=== PATIENT | female | born 1985 | race Caucasian/White ===

== ENCOUNTER 2024-03-29 09:48 | Emergency (ER) | payer OTHER, MEDICAID, SELFPAY ==
--- NOTE | ~2024-03-29 | XR_ITS ---
XR lumbar spine min 4V DATE: 03/29/2024 10:42 INDICATION: Low back pain, radiating to right leg. History of scoliosis. TECHNIQUE: AP, lateral, bilateral oblique views, coned lateral lumbosacral view COMPARISON: None FINDINGS: Mild rotatory dextroscoliosis of the lumbar spine. No fracture or bone destruction or spondylolisthesis is evident. Lumbar and lumbosacral interspaces a ppear relatively well preserved. The sacroiliac joints are intact. IMPRESSION: Mild rotatory dextroscoliosis Reviewed, dictated and finalized at location A.
[2024-03-29 10:04] VITALS: BP 111/74; PULSE 75; RESP 16; TEMP 36.7; O2SAT 99
--- NOTE | 2024-03-29 10:12 | ED.BACK ---
HPI - Back Pain/Injury General Chief Complaint: Back Pain/Injury Stated Complaint: lower back pain Time Seen by Provider: 03/29/24 09:51 Source: patient Mode of arrival: ambulatory Limitations: no limitations History of Present Illness HPI Narrative: Patient is a 38 y/o female, with pmh of scoliosis, who presents to the ED with c/o lower back pain. Patient reports pain began last night, but became worse after eating breakfast this morning. Unsure if she slept wrong. Denies any distinct injury. She is currently in the residential program at [facility] and was given Tylenol this morning around 8:00 a.m. for a headache. States it has not improved her back pain. States pain is worse on the right side and intermittently radiates down her right leg. Reports intermittent paresthesias in right leg. Denies saddle anesthesia, numbness, weakness, bowel or bladder incontinence, abdominal pain, nausea, vomiting, fevers. Related Data Allergies Allergy/AdvReac Type Severity Reaction Status Date / Time coconut AdvReac Unknown Verified 03/29/24 10:08 tramadol AdvReac Unknown Verified 03/29/24 10:08 Review of Systems Review of Systems: CONSTITUTIONAL: Denies fever, chills, or sweats. GASTROINTESTINAL: Denies abdominal pain, nausea, vomiting, or diarrhea. GENITOURINARY: Denies incontinence, dysuria or hematuria. MUSCULOSKELETAL: See HPI. NEUROLOGIC: See HPI All systems reviewed & are unremarkable except as noted in HPI and below Exam Narrative: GENERAL: Well appearing, well-nourished, non-toxic, in no acute distress. HEAD: Normocephalic, atraumatic. RESPIRATORY: Airway patent, respirations nonlabored. Clear to auscultation bilaterally, no rales, rhonchi, wheezing. CARDIOVASCULAR: Regular rate and rhythm ABDOMINAL: Soft, no tenderness throughout abdomen, nondistended. Normoactive BS. MUSCULOSKELETAL: Moves all extremities. No gross deformities. Mild tenderness throughout right lumbosacral region, and over right SI region. No midline spinal tenderness. Sensation intact. SKIN: Warm, dry, normal color. NEURO: A&O X3. Speech clear. Cranial nerves II-XII grossly intact. Steady gait. No ataxic movements. PSYCHIATRIC: Appropriate mood and affect. Normal interaction. Course Vital Signs Vital signs: Vital Signs Temperature 98.1 F 03/29/24 10:04 Pulse Rate 75 03/29/24 10:04 Respiratory Rate 16 03/29/24 10:04 Blood Pressure 111/74 03/29/24 10:04 Pulse Oximetry 99 03/29/24 10:04 Oxygen Delivery Room Air 03/29/24 10:04 Temperature 98.1 F 03/29/24 10:04 Pulse Rate 82 03/29/24 10:58 Respiratory Rate 16 03/29/24 10:58 Blood Pressure 110/97 H 03/29/24 10:58 Pulse Oximetry 100 03/29/24 10:58 Oxygen Delivery Room Air 03/29/24 10:04 MDM - Back Pain/Injury MDM Narrative Medical decision making narrative: Patient presented to ED with 1 day history of right lower back pain. X-ray of lumbar spine showing scoliosis changes, no acute findings, vertebral spaces are well preserved. Patient?s pain is positional and localized to paraspinal muscles without signs of cord compression or cauda equina. Normal neurologic exams. No red flag symptoms. No fever noted and no significant risk factors for osteomyelitis or spinal epidural abscess. No symptoms or signs to suggest pain is referred from abdominal or source. Patient ambulates with a steady gait and is felt to be a reasonable candidate for continued outpatient management. She is feeling much better with supportive therapy. Resting comfortably on re-evaluation. Discussed discharge home, continue Tylenol/ibuprofen as needed for pain, will prescribe a few muscle relaxers for home use. Given return precautions. Patient discharged in stable condition. Remained neurologically intact at time of d/c. Medical Records Attestation: I reviewed the patient's medical records. Imaging Data Attestation: I personally reviewed and interpreted this imaging stud
[2024-03-29] MEDS: CYCLOBENZAPRINE HCL 5 MG TABLET PO (10:42)
[2024-03-29] MEDS: methylPREDNISolone SOD SUCC 125 MG VIAL IM (10:44)
[2024-03-29] MEDS: KETOROLAC (*BKC) 60 MG/2 ML VIAL IM (10:46)
[2024-03-29 10:58] VITALS: BP 110/97; PULSE 82; RESP 16; O2SAT 100
[2024-03-29 12:11] VITALS: BP 105/83; PULSE 70; RESP 14; O2SAT 100
== END 2024-03-29 12:12 | disposition home or self-care (01) ==
PROVIDERS: Emergency Provider Physician Assistant
DX: S39.012A Strain of muscle, fascia and tendon of lower back, initial encounter (principal); X58.XXXA Exposure to other specified factors, initial encounter
CPT/HCPCS: 72110; 96372; 99284; A9270; J1885; J2919

== ENCOUNTER 2024-06-15 18:49 | Emergency (ER) | payer OTHER, MEDICAID, SELFPAY ==
--- NOTE | ~2024-06-15 | CT_ITS ---
EXAMINATION: CT brain wo con DATE: 06/15/2024 19:09 INDICATION: head injury . TECHNIQUE: Computed tomography (CT) of the head was performed without intravenous contrast. The mA wa s adjusted according to patient size. Iterative reconstruction technique was employed. The dose-lengt h product was 605.33 mGy-cm. COMPARISON: None. FINDINGS: No acute intracranial hemorrhage or extra-axial fluid collection. No hydrocephalus, mass, or herniation. No acute ischemic infarct. Unremarkable dural venous sinus attenuation. No acute osseous abnormality. The aerated spaces are clear. IMPRESSION: No acute intracranial process. Reviewed, dictated and finalized at location K.
[2024-06-15 18:53] VITALS: BP 113/92; PULSE 80; RESP 18; TEMP 36.3; O2SAT 99
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
[2024-06-15 21:32] VITALS: BP 138/82; PULSE 84; RESP 15; O2SAT 99
[2024-06-15] MEDS: TETANUS,DIPHTHERIA,AC PERTUSSIS ADULT (0.5 ML) BOOSTRIX IM (21:34)
[2024-06-15 21:55] VITALS: PULSE 84; RESP 18; O2SAT 98
[2024-06-16] MEDS: METOCLOPRAMIDE HCL INJ 10 MG/2 ML VIAL IV PUSH (00:18)
[2024-06-16] MEDS: diphenhydrAMINE HCl INJ 50 MG/ML VIAL 25 MG IV PUSH (00:18)
[2024-06-16] MEDS: SODIUM CHLORIDE 0.9% IV 1,000 ML 999 ML IV CONT (00:19)
[2024-06-16] MEDS: ACETAMINOPHEN 500 MG TABLET 1000 MG PO (00:19)
[2024-06-16 00:31] VITALS: BP 107/74; PULSE 71; RESP 17; O2SAT 99
== END 2024-06-16 02:38 | disposition home or self-care (01) ==
PROVIDERS: Emergency Provider Physician Assistant
DX: S00.03XA Contusion of scalp, initial encounter (principal); G43.909 Migraine, unspecified, not intractable, without status migrainosus; Z23 Encounter for immunization; Z87.891 Personal history of nicotine dependence; W22.8XXA Striking against or struck by other objects, initial encounter
CPT/HCPCS: 70450; 90471; 90715; 96361; 96374; 96375; 99284; A9270; J1200; J2765; J7030